=== PATIENT | male | born 1970 | race Hispanic/Latino ===

== ENCOUNTER 2018-12-14 06:36 | Day surgery (SDC) | payer OTHER ==
[2018-12-10 11:16] LABS: BASOPHILS % (AUTO) 0.9 % (0.0-5.0); EOSINOPHILS % (AUTO) 2.4 % (0.0-8.0); HEMATOCRIT 44.4 % (42-54); LYMPHOCYTES % (AUTO) 25.8 % (21.0-51.0); MEAN CORPUSCULAR HEMOGLOBIN 31.3 pg (27.0-33.0); MEAN CORPUSCULAR HGB CONC 34.4 g/dL (32.0-36.0); MEAN CORPUSCULAR VOLUME 91.1 fL (79-99); MONOCYTES % (AUTO) 6.5 % (3.0-13.0); NEUTROPHILS % (AUTO) 64.4 % (40.0-77.0); PLATELET COUNT (AUTO) 266 K/uL (130-400); RED BLOOD CELL COUNT(AUTO) 4.87 MIL/uL (4.50-6.20); RED CELL DISTRIBUTION WIDTH 13.1 % (11.0-15.5)
[2018-12-10 11:21] VITALS: BP 140/81
[2018-12-10 11:21] LABS: POTASSIUM 5.1 mmol/L (3.5-5.1)
[2018-12-14] VITALS (18 sets, daily range): BP systolic 119–137; BP diastolic 65–82
[~2018-12-14] VITALS: Ht 166.4 cm; Wt 77.6 kg
[~2018-12-14 06:36] MED LIST: ATOR40TA71 PO; CETI10TA57 PO; IMIP25TA5 PO; LACTATED RINGERS 1000ML 1,000 ML IV SCH; TAMS0.4C32 PO
[2018-12-14] MEDS ORDERED: MIDAZOLAM HCL 1 MG/ML 2ML VIAL ONE (10:45)
[2018-12-14] MEDS ORDERED: PROPOFOL 10 MG/ML 20ML VIAL IV ONE (10:45)
[2018-12-14] MEDS ORDERED: FENTANYL CITRATE PF 50 MCG/1 ML 2ML VIAL ONE (10:46)
--- NOTE | 2018-12-14 12:50 | NUR ---
new pt received pt from [facility], s/p cystoscopy hydrodistention of bladder . pt awake and alert, denies any pain or discomforts. vs stable on arrival
--- NOTE | 2018-12-14 13:20 | NUR ---
dc dc instructions given to pt / pt spouse, instructed to f/u with dr. baig. pt verbalized understanding. pt awake and alert in bed, denies any pain or discomforts.
--- NOTE | 2018-12-14 13:25 | NUR ---
dc pt dc home via [facility],no distress noted. denies any pain or discomforts. accompanied by spouse
== END 2018-12-14 13:25 | disposition home or self-care (01) ==
LOC: DAH 06:36
PROVIDERS: ATTEND Surgery
DX: N30.10 Interstitial cystitis (chronic) without hematuria (principal); Z79.899 Other long term (current) drug therapy; Z98.890 Other specified postprocedural states; E11.9 Type 2 diabetes mellitus without complications
CPT/HCPCS: 36415; 52260; 80048; 85025; 87088; A4358; A4600; J2250; J2704; J3010; J7120

== ENCOUNTER 2022-03-07 10:55 | Emergency (ER) | payer OTHER ==
[~2022-03-07] VITALS: Ht 170.2 cm; Wt 72.1 kg
[~2022-03-07 10:55] MED LIST changes: -LACTATED RINGERS 1000ML 1,000 ML IV SCH
[2022-03-07 12:03] LABS: BASOPHILS % (AUTO) 0.5 % (0.0-5.0); EOSINOPHILS % (AUTO) 1.5 % (0.0-8.0); HEMATOCRIT 42.6 % (42-54); LYMPHOCYTES % (AUTO) 36.8 % (21.0-51.0); MEAN CORPUSCULAR HEMOGLOBIN 31.2 pg (27.0-33.0); MEAN CORPUSCULAR HGB CONC 35.4 g/dL (32.0-36.0); MONOCYTES % (AUTO) 6.9 % (3.0-13.0); PLATELET COUNT (AUTO) 255 K/uL (130-400); RED BLOOD CELL COUNT(AUTO) 4.84 MIL/uL (4.50-6.20); WHITE BLOOD COUNT (AUTO) 3.9 K/uL (4.8-10.8)
[2022-03-07 12:13] LABS: CREATININE 0.8 mg/dL (0.5-1.5); POTASSIUM 3.8 mmol/L (3.5-5.1)
[2022-03-07 12:14] LABS: INR 0.95 (0.85-1.15); PROTHROMBIN TIME 10.4 SEC (9.6-11.6)
[2022-03-07 12:17] LABS: ALBUMIN 3.9 g/dL (3.5-5.0); BILIRUBIN,TOTAL 0.4 mg/dL (0.2-1.0); TOTAL PROTEIN, SERUM 7.9 g/dL (6.0-8.3)
[2022-03-07 12:38] LABS: B-TYPE NATRIURETIC PEPTIDE 16 pg/mL (0-100)
[2022-03-07 15:41] VITALS: BP 150/83
== END 2022-03-07 15:42 | disposition home or self-care (01) ==
LOC: EDH 10:55
DX: R07.89 Other chest pain (principal); E78.00 Pure hypercholesterolemia, unspecified; Z90.89 Acquired absence of other organs; Z98.890 Other specified postprocedural states; Z79.899 Other long term (current) drug therapy
CPT/HCPCS: 36415; 71045; 80053; 83880; 84484; 85025; 85610; 93005

== ENCOUNTER 2023-11-07 17:34 | Emergency (ER) | payer OTHER | END 2023-11-07 18:34 | disposition left against medical advice (07) | LOC: EDH 17:34 | DX: R68.89 Other general symptoms and signs (principal); Z53.21 Procedure and treatment not carried out due to patient leaving prior to being seen by health care provider ==